=== PATIENT | female | born 1955 | race Caucasian/White ===

== ENCOUNTER 2021-02-17 06:30 | Day surgery (SDC) | payer MEDICARE ==
[~2021-02-17] VITALS: Ht 170.2 cm; Wt 182.0 kg
[~2021-02-17 06:30] MED LIST: ASPIRIN81 MG PO; CYMBALTA60 MG PO; DICLOFENAC SODI75 MG PO; EXFORGE 5-3201 EACH PO; LEVOTHYROXINE75 MC1 PO; LYRICA150 MG PO; MULTI VITAMIN1 EACH PO; MYRBETRIQ50 MG PO; OSTEOBLOX CF C1 EACH PO; WELLBUTRIN XL300 MG PO
--- NOTE | 2021-02-17 08:37 | NUR ---
02/17/21 0837 Mikki Hoang 0828 PATIENT ARRIVES TO PACU WITH NASAL TRUMPET TO RIGHT NARE. UNRESPONSIVE TO VERBAL STIMULI. RESP EVEN AND UNLABORED, NC AT 2 LITERS. 0829 PATIENT OPENS EYES TO VERBAL STIMULI, FOLLOWS COMMANDS TO REPOSITION SELF TO BACK. NASAL TRUMPET REMOVED. RESP EVEN AND UNLABORED, NC OFF. PATIENT DENIES PAIN OR NAUSEA. BACK TO SLEEP WHEN NOT STIMULATED.
--- NOTE | 2021-02-17 10:36 | OR ---
[facility] [place] [facility] [address] [place], [place] [address] Signed DATE OF OPERATION: 02/17/2021 SURGEON: Gabrielle Harry MD PREOPERATIVE DIAGNOSES: 1. Morbid obesity, awaiting bypass surgery. 2. Personal history of colonic polyps in 2006 and 2011. 3. 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 4. Internal hemorrhoids in 2016. POSTOPERATIVE DIAGNOSES: 1. Mild to moderate diffuse gastritis. 2. Antral small shallow gastric ulcers x3. 3. 10 mm polyp at right lateral 13 cm position in rectum. 4. Minimal sigmoid diverticulosis. 5. Minimal internal hemorrhoids with associated skin tags. PROCEDURES: 1. EGD with CLOtest and biopsies of the antrum. 2. Colonoscopy with snare polypectomy, hot biopsy and tattoo. 3. Rigid proctoscopy. INDICATIONS: Rosa is a 65-year-old female with a body mass index of 71. She is in evaluation for gastric surgery with [facility]. In addition, she has had a personal history of colonic polyps in 2006 and 2011. She is known to have some internal anal skin tags and hemorrhoids as well. I have been asked to perform her upper and lower endoscopy with respect to the above. I gave her booklets in the office on both subjects. She understands the nature of the two tests. There is risk including, but not limited to gas bloating, crampy abdominal pain, bleeding, perforation requiring surgery, and missed diagnosis. Because of her body mass index, she clearly needs monitored anesthesia care. She had expressed understanding and wished to proceed. PROCEDURE NOTE: Rosa was taken into our endoscopy suite and placed in the supine semi-recumbent position. The posterior oropharynx was anesthetized with lidocaine spray. A bite block was utilized for the case. The adult gastroscope was introduced and advanced out into the third portion of the duodenum under direct visualization of camera without difficulty. The duodenum and pyloric channel were unremarkable. Her stomach showed moderate diffuse hemorrhagic gastritis. She had three small shallow nonbleeding ulcers Electronically Signed By: GABRIELLE HARRY MD 02/17/21 1036 PATIENT NAME: ROSA GALLARDO OPERATIVE REPORT DATE OF : 59 REPORT #: [id number] PHYSICIAN: GABRIELLE HARRY MD PCP: DARLIN CLAY MD REPORT IS CONFIDENTIAL AND NOT TO BE RELEASED WITHOUT AUTHORIZATION [facility] [address] [place], [place] [address] Signed in the antrum. Upon retroflexion of scope, I really could not appreciate an obvious hiatal hernia. It was difficult to insufflate the stomach sufficiently for really a good view. The scope was withdrawn up to the area of GE junction, which was compliant without stricture. Really, no disruption to the Z-line. No Christian's mucosa, no distal esophagitis. No gastric or esophageal varices. The middle and upper esophagus were unremarkable. Rosa tolerated the upper endoscopy quite well. Rosa was then rotated into the left lateral decubitus position. She was maintained on IV sedation with propofol per our nurse phone manager. A digital rectal exam was performed and this was unremarkable. The adult colonoscope was introduced and advanced under direct visualization of camera. The camera advanced fairly readily without much resistance right up to the handle. We are pretty certain we were in the mid right colon. This was due to the landmarks and palpation, although it is difficult to know for sure. The scope was then slowly withdrawn. She does have some diverticula in the sigmoid colon. They were small in size, few in number, and scattered about. High in the rectum, in the right lateral side at 13 cm was a 10 mm polypoid polyp. It was removed with the help of the snare. We then took several biopsies around the base with hot biopsy forceps. The tattoo was then injected. The scope was then retroflexed and we could see she has minimal internal hemorrhoid columns with associated skin tags. After this, the adult colonoscope had been removed. The adult rigid proctoscope was then inserted and we can see this tattoo lesion in the right lateral position at 13 cm from the anal verge. After this, the gas was allowed to escape and the rigid proctoscope was removed. Rosa tolerated the procedure quite well. RECOMMENDATIONS: I will see Rosa back in my office in 7 to 14 days to review her results. Gabrielle Harry MD ALB/MODL /[id number] cc: MD Darlin Macdonald MD Electronically Signed By: GABRIELLE HARRY MD 02/17/21 1036 PATIENT NAME: ROSA GALLARDO OPERATIVE REPORT DATE OF : 59 REPORT #: [id number] PHYSICIAN: GABRIELLE HARRY MD PCP: DARLIN CLAY MD REPORT IS CONFIDENTIAL AND NOT TO BE RELEASED WITHOUT AUTHORIZATION [facility] [address] [place], [place] [address] Signed [facility] Copies: GABRIELLE HARRY MD ~ Electronically Signed By: GABRIELLE HARRY MD 02/17/21 1036 PATIENT NAME: ROSA GALLARDO OPERATIVE REPORT DATE OF : 59 REPORT #: [id number] PHYSICIAN: GABRIELLE HARRY MD PCP: DARLIN CLAY MD REPORT IS CONFIDENTIAL AND NOT TO BE RELEASED WITHOUT AUTHORIZATION
--- NOTE | 2021-02-21 14:04 | PATH ---
[facility] [address] [place], [place] [address] Signed SPECIMEN(S): A ANTRUM/PYLORUS SPECIMEN(S): B COLON POLYP BASE SPECIMEN(S): C COLON POLYP 10 CM SPECIMEN SOURCE: A. ANTRUM/PYLORUS B. COLON POLYP BASE C. COLON POLYP 10 CM CLINICAL HISTORY: History of colon polyps, morbid obesity. Findings: Gastritis, gastric ulcers x3m, colon polyp, diverticula. MICROSCOPIC DESCRIPTION: Histologic sections of all submitted blocks are examined by light microscopy. These findings, together with the gross examination, support the pathologic diagnosis. FINAL PATHOLOGIC DIAGNOSIS: A. Stomach, antrum/pylorus, biopsy: - Antral mucosa with reactive gastropathy and focal pancreatic acinar metaplasia. - Negative for Helicobacter organisms on NE stain. - Negative for dysplasia or malignancy. B. Colon, base of 10 cm polyp, biopsy: - Favor fragments of cauterized tubular adenoma. - Negative for high-grade dysplasia or malignancy. - See Comment. C. Colon, polyp at 10 cm, polypectomy: - Tubular adenoma. - Negative for high-grade dysplasia or malignancy. COMMENT: Regarding specimen B: The fragments of colonic mucosa are cauterized, limiting histologic interpretation. A tubular adenoma is favored. NAL:cml:C2NR GROSS DESCRIPTION: Three specimens are received in three containers, labeled "'Rosa Gallardo." A. The specimen, labeled "Rosa Villeda, #1," and designated on the requisition "antrum/pylorus biopsy," is received in formalin and consists of PATIENT NAME: ROSA GALLARDO PATHOLOGY DATE OF : 59 REPORT #: [id number] PHYSICIAN: KHADRA PAYNE PCP: HEATHER CLAY MD REPORT IS CONFIDENTIAL AND NOT TO BE RELEASED WITHOUT AUTHORIZATION [facility] [address] [place] [address] Signed one hernández soft tissue fragment that measures 0.3 cm in greatest dimension. The specimen is entirely submitted in cassette (A1). B. The specimen, labeled "'Rosa Gallardo, #3 base of 10 cm polyp," is received in formalin and consists of nine hernández soft tissue fragment(s) that measure 0.3-0.7 cm in greatest dimension. The specimen is entirely submitted in cassette (B1). C. The specimen, labeled "Rosa Villeda, #4," and designated on the requisition "polypectomy 10 cm," is received in formalin and consists of one brown-hernández soft tissue fragment that measures 1.4 cm in greatest dimension. The specimen is inked, sectioned, and entirely submitted in cassette (C1). FB (under the direct supervision of a pathologist) The Gross Description was prepared using a voice recognition system. The report was reviewed for accuracy; however, sound-alike word errors, addition and/or deletions may occur. If there is any question about this report, please contact Client Services. PERFORMING LABORATORY: The technical component was performed by [facility] [address] (Woodworker: Cassandra Joseph MD; CLIA# [id number]). [facility], [address] [place] [id number] ([facility]# [id number]). Diagnostician: Julia Burris MD Pathologist Electronically Signed 02/21/2021 Copies: ~ PATIENT NAME: ROSA GALLARDO PATHOLOGY DATE OF : 59 REPORT #: [id number] PHYSICIAN: KHADRA PAYNE PCP: HEATHER CLAY MD REPORT IS CONFIDENTIAL AND NOT TO BE RELEASED WITHOUT AUTHORIZATION
== END 2021-02-17 09:24 | disposition home or self-care (01) ==
LOC: DS 06:30 → OPS 06:30
PROVIDERS: ATTEND Colon & Rectal Surgery
PROC: 3E0H8GC Introduction of Other Therapeutic Substance into Lower GI, Via Natural or Artificial Opening Endoscopic (ICD-10-PCS; 2021-02-17)
PROC: 0DJD8ZZ Inspection of Lower Intestinal Tract, Via Natural or Artificial Opening Endoscopic (ICD-10-PCS; 2021-02-17)
PROC: 0DB68ZZ Excision of Stomach, Via Natural or Artificial Opening Endoscopic (ICD-10-PCS; principal; 2021-02-17 06:45)
PROC: 0DBE8ZZ Excision of Large Intestine, Via Natural or Artificial Opening Endoscopic (ICD-10-PCS; 2021-02-17 06:45)
DX: D12.6 Benign neoplasm of colon, unspecified (principal); D12.8 Benign neoplasm of rectum; K29.71 Gastritis, unspecified, with bleeding; K25.9 Gastric ulcer, unspecified as acute or chronic, without hemorrhage or perforation; K57.30 Diverticulosis of large intestine without perforation or abscess without bleeding; E66.01 Morbid (severe) obesity due to excess calories; K31.9 Disease of stomach and duodenum, unspecified; K64.8 Other hemorrhoids; K64.4 Residual hemorrhoidal skin tags; K63.89 Other specified diseases of intestine; I10 Essential (primary) hypertension; M19.90 Unspecified osteoarthritis, unspecified site; G47.33 Obstructive sleep apnea (adult) (pediatric); E03.9 Hypothyroidism, unspecified; G43.909 Migraine, unspecified, not intractable, without status migrainosus; F32.9 Major depressive disorder, single episode, unspecified; G62.0 Drug-induced polyneuropathy; Z86.010 Personal history of colon polyps; Z68.45 Body mass index [BMI] 70 or greater, adult; Z96.653 Presence of artificial knee joint, bilateral; Z79.82 Long term (current) use of aspirin; Z85.43 Personal history of malignant neoplasm of ovary
CPT/HCPCS: 86677; 88305; J0690; J2704

== ENCOUNTER 2025-05-21 08:26 | Emergency (ER) | payer MEDICARE ==
[~2025-05-21] VITALS: Ht 170.2 cm; Wt 167.0 kg
[2025-05-21] MEDS ORDERED: OXYCODONE/APAP 5/325 TAB PO ONE (09:00)
[2025-05-21] MEDS ORDERED: ONDANSETRON 4 MG TAB ODT SL ONE (09:00)
[2025-05-21 10:04] VITALS: BP 127/70
== END 2025-05-21 10:06 | disposition home or self-care (01) ==
LOC: ED 08:26
DX: M25.531 Pain in right wrist (principal); W18.30XA Fall on same level, unspecified, initial encounter; I10 Essential (primary) hypertension; Z88.7 Allergy status to serum and vaccine; Z79.82 Long term (current) use of aspirin; Z79.890 Hormone replacement therapy; Z79.899 Other long term (current) drug therapy
CPT/HCPCS: 73110; 99283; A9270